=== PATIENT | female | born 1950 | race Caucasian/White ===

== ENCOUNTER 2016-03-16 08:52 | Outpatient (CLI) | payer MEDICARE, OTHER ==
[~2016-03-16] VITALS: Ht 157.5 cm; Wt 50.0 kg
[~2016-03-16 08:52] MED LIST: ACET500C5 PO; BACTDS PO; CEPH-443 PO; CLIN-73 PO; HYDR-3498 PO
[2016-03-16 09:38] VITALS: Ht 157.5 cm; Wt 50.0 kg
[2016-03-16] MEDS ORDERED: LISI10TA2 PO (09:38)
[2016-03-16] MEDS ORDERED: LORA10CA PO (09:38)
[2016-03-16] MEDS ORDERED: LEVE500T8 PO (09:38)
[2016-03-16] MEDS ORDERED: LATA2.5D2 BOTH EYES (09:38)
[2016-03-16] MEDS ORDERED: PROP10TA6 PO (09:38)
[2016-03-16] MEDS ORDERED: FLUT16SP17 NASAL (09:38)
[2016-03-16] MEDS ORDERED: PARO40TA79 PO (09:38)
[2016-03-16] MEDS ORDERED: PRED10TA PO (09:38)
[2016-03-16] MEDS ORDERED: PANT40TA4 PO (09:38)
[2016-03-16] MEDS ORDERED: FLUC100T39 PO (09:38)
[2016-03-16 09:39] VITALS: BP 114/54; PULSE 84; RESP 18
--- NOTE | 2016-03-16 18:18 | CONS ---
[facility] INITIAL OUTPATIENT CONSULTATION NOTE DATE OF CONSULTATION: 03/16/2016 PLACE OF SERVICE: [facility]. 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 I do not believe that the patient is a surgical candidate, although the final decision has to be made after careful review of the images themselves. I explained all my thoughts to the patient's family in detail including the unlikely candidacy for the patient to undergo liver resection. We reviewed the local treatment options for the liver including transarterial chemoembolization and radioembolization along with radiofrequency ablation. My recommendation at this time is to continue with plans for transarterial chemoembolization as a first step. The patient is likely not a transplant candidate given her infection and comorbid issues, but this is certainly something that we will discuss in the multidisciplinary tumor board presentation. We also discussed systemic chemotherapy, which I do not believe are efficacious and, given her current infectious parameters, are probably not likely to be beneficial with the patient. I answered all the patient's and family's questions to the best of my ability. I believe that they understand and agree with the plan. With above assessment, I have recommended the followin. Transarterial chemoembolization to lesion in segment 8 of the liver. 2. Multidisciplinary tumor board presentation. 3. Possible consideration for transplant, although the patient is likely not a candidate for it. 4. Possible consideration for medical oncology consultation, although systemic chemotherapy is not effective, especially in the setting of ongoing infection. 5. Careful follow up with you, Dr. Potter. 6. Careful follow with the patient's primary care physician. Thank you again for allowing us to participate in the care of this very pleasant lady and her wonderful family. I will institute the above plans and plan on seeing the patient 2 or 3 months after her case to see if further treatment is necessary. If there are any questions, please call me at [phone]. TOTAL VISIT TIME: 60 minutes of which more than half was spent in [id number] discussion with the patient, discussions with her family, that included 2 of her sons and coordination of care between multiple physicians and providers. HISTORY OF PRESENT ILLNESS: The patient is a very pleasant, but unfortunate 66- year-old lady with multiple comorbid issues including recent diagnosis of cryptococcal meningitis for which she was hospitalized and has significantly hampered her cognitive abilities who was also diagnosed with a liver mass that, after biopsy, was consistent with hepatocellular carcinoma. She was kindly referred to us for surgical evaluation and treatment. The patient herself did not have any major complaints, but also was very minimally interactive during the visit. Her 2 sons were accompanying her and they reported that she is dependent for the most part for all her activities of daily living. She is currently on Diflucan orally and does not have significant mobility or other self-initiated activities. PAST MEDICAL HISTORY: 1. Diabetes. 2. Hypertension. 3. Gastritis. 4. Above-mentioned cryptococcal meningitis diagnosed towards the end of 2015, treated with oral Diflucan. 5. Status post subdural hematoma and subarachnoid hemorrhage after a fall. 6. Above-mentioned diagnosis of liver mass. PAST SURGICAL HISTORY: None. ALLERGIES: IBUPROFEN. MEDICATIONS: Include: 1. Fluconazole. 2. Fluticasone. 3. Latanoprost. 4. Levetiracetam. 5. Lisinopril. 6. Loratadine. 7. Pantoprazole. 8. Paroxetine. 9. Prednisone. 10. Propranolol. SOCIAL HISTORY: The patient lives with family. She is wheelchair bound. No smoking, drinking, or intravenous drug use. FAMILY HISTORY: Possible history of liver or malignancy in the patient's mother. REVIEW OF SYSTEMS: Other than the above-mentioned, there are no other pertinent positives or pertinent negatives in a complete 14-point review of systems. PHYSICAL EXAMINATION: GENERAL: The patient appears to be a very pleasant lady of descent, appearing stated age or perhaps slightly older, sitting in a wheelchair comfortably and in no acute distress. BMI is 20.2. She is afebrile. VITAL SIGNS: Stable. HEENT: Normocephalic and atraumatic. Extraocular muscles and hearing are grossly intact bilaterally and symmetrically. Sclerae are nonicteric. Oral cavity is clear; oral mucosa appeared to be pink and moist. Dentition: fair. NECK: Supple. There is no lymphadenopathy or JVD. There is no submental, submandibular or supraclavicular lymphadenopathy. CHEST: Rises symmetrically with each breath; patient is breathing comfortably. There are no audible wheezes, rales or rhonchi on the gross exam. HEART: HPulse is regular and palpable on the left wrist. Capillary refill was normal. Carotid pulses are palpable bilaterally and symmetrically in the neck. EXTREMITIES: Lower extremities contain no pitting edema around the ankles bilaterally and symmetrically. ABDOMEN: Abdomen is soft, nontender and nondistended. There are no peritoneal signs or guarding. No evidence of ascites, organomegaly, caput medusae, engorged subcutaneous veins, or other abnormalities. SKIN: Appears to be pink and feels warm to touch. NEUROLOGIC: Awake, alert, and follows commands appropriately. LABORATORY DATA: Dated 02/28/2016 shows platelet count of 94. Note that I saw a platelet count of 130 in some of her previous labs, but for the most part, it is high 90s to low 100s. Albumin 2.9, total bilirubin 0.9, alkaline phosphatase 259. Hemoglobin A1c 7.5. IMAGING: The patient has had several images including CT scans of the abdomen and pelvis, the most pertinent of which is dated 12/16/2015 that shows a mass in segment 8 of the liver measuring approximately 3.6 cm and demonstrating arterial enhancement with final impression of hepatocellular carcinoma until proven otherwise. No other lesions were mentioned on the reports. A CT-guided biopsy of this was done on 12/19/2015 with final pathology consistent with hepatocellular carcinoma. Note that I only had access to the reports of these images and I requested the office to obtain the actual images for review. Dictated By: ANI BACON/OLGA Conf#: [id number] DID#: [id number] CC: ANA COLE MD; Trey Potter;*EndCC* [facility]
== END 2016-03-16 16:50 | disposition home or self-care (01) ==
LOC: HPC 08:52
PROVIDERS: ATTEND Transplant Surgery
DX: C22.0 Liver cell carcinoma (principal); B45.1 Cerebral cryptococcosis; R16.0 Hepatomegaly, not elsewhere classified; E11.9 Type 2 diabetes mellitus without complications; I10 Essential (primary) hypertension; K29.70 Gastritis, unspecified, without bleeding
CPT/HCPCS: G0463